=== PATIENT | male | born 1975 | race American Indian/Alaskan Native ===

== ENCOUNTER 2016-12-16 10:48 | Emergency (ER) | payer SELFPAY ==
[2016-12-16 11:58] VITALS: BP 121/83
--- NOTE | 2016-12-16 14:03 | Emergency Department Report ---
HPI - General Chief Complaint: Skin Rash Time Seen by Provider: 12/16/16 14:02 - HPI HPI: Patient is a 41-year-old male with no past medical history who presents to ED complaining of aching redness rash all over his body that started . Patient states since has been having this rash all over his body. Patient states he developed whelps and redness all over. Patient states some parts are dry just really relate itchy. Patient states his of allergies to penicillin and has not had penicillin recently. Patient states he had some fish recently and has not had any fish in a long time otherwise no other exposure. Patient states he currently stays at an extended stay. Patient denies fever assess chills/nausea/vomiting/shortness of breath. ED Past Medical Hx - Medications Home Medications: Home Medications Medication Instructions Recorded Confirmed Last Taken Type Famotidine [Pepcid] 20 mg PO BID #10 tablet 12/16/16 Unknown Rx Prednisone [predniSONE 10 mg 10 mg PO .TAPER #1 tab.ds.pk 12/16/16 Unknown Rx (6-Day Pack, 21 Tabs)] hydrOXYzine PAMOATE [Vistaril] 50 mg PO QHS #20 capsule 12/16/16 Unknown Rx ED Review of Systems ROS: Stated complaint: SKIN IRRITATION Other details as noted in HPI Constitutional: denies: chills, fever Eyes: denies: eye pain, eye discharge, vision change ENT: denies: ear pain, throat pain Respiratory: denies: cough, shortness of breath, wheezing Cardiovascular: denies: chest pain, palpitations Endocrine: no symptoms reported Gastrointestinal: denies: abdominal pain, nausea, diarrhea Genitourinary: denies: urgency, dysuria Musculoskeletal: denies: back pain, joint swelling, arthralgia Skin: rash, pruritus. denies: lesions Neurological: denies: headache, weakness, paresthesias Psychiatric: denies: anxiety, depression Hematological/Lymphatic: denies: easy bleeding, easy bruising Physical Exam - Physical Exam Vital Signs: Vital Signs 12/16/16 11:52 Temperature 98.3 F Pulse Rate 98 H Respiratory 18 Rate Blood Pressure 121/83 O2 Sat by Pulse 100 Oximetry Physical Exam: GENERAL: Alert and oriented x3, no apparent distress, Normal gait, atraumatic. HEAD: Head is normocephalic and a-traumatic. EYES: Extra ocular muscles are intact. Pupils are equal, round, and reactive to light and accommodation. EARS: symetrical, atraumatic, non tender, ear canal clear and moderate cerumen, tympanic membrance non inflamed. gross auditory nml bilaterally. NOSE: Nose symetrical, Nontender,Nares appeared normal. MOUTH:Mouth is well hydrated and without lesions. Tonsils nonerythematous or swollen, Uvula midline, Tongue not elevated. Mucous membranes are moist. Posterior pharynx clear, no exudate or lesions. Patent airways. NECK: Supple. Non edematous, No carotid bruits. No lymphadenopathy or thyromegaly. LUNGS: Symetrical with respiration, No wheezing, no rales or crackles, CTAB. HEART: S1, S2 present, regular rate and rhythm without murmur, no rubs, no gallops. ABDOMEN: No organomegaly was noted,Positive bowel sounds, soft, and non- distended. . Nontender to palpation on all Quadrants, NO CVA tenderness. EXTREMITIES/MUSCULOSKELETAL: No cyanosis, clubbing, rash, lesions or edema. Full ROM bilaterally. UE/LE Pulses 2+ bilaterally. LE and UE 5+ strength bilaterally NEUROLOGIC: No focal Deficit, Cranial nerves II through XII are grossly intact. SKIN: Warm and dry, red scaly maculopapular erythematous rash all over body on bilateral legs bilateral arms and trunk and upper back. No tl garner. ED Course Vital Signs 12/16/16 11:52 Temperature 98.3 F Pulse Rate 98 H Respiratory 18 Rate Blood Pressure 121/83 O2 Sat by Pulse 100 Oximetry ED Medical Decision Making - Medical Decision Making 41-year-old male presents with allergic dermatitis. ED course: Patient received 125 mg of Solu-Medrol IM and Claritin 10 mg. Discussed patient to discard any sheets and wash all linens and clothes prior to. Pt reports feeling better prior to d/c after the pred inj. Discussed with patient to follow up with primary care physician and take medication as prescribed. Critical care attestation.: If time is entered above; I have spent that time in minutes in the direct care of this critically ill patient, excluding procedure time. ED Disposition Clinical Impression: Allergic dermatitis Contact dermatitis Qualifiers: Contact dermatitis type: allergic Contact dermatitis trigger: unspecified trigger Qualified Code(s): L23.9 - Allergic contact dermatitis, unspecified cause Disposition: DISCHARGED TO HOME OR SELFCARE Is pt being admited?: No Does the pt Need Aspirin: No Condition: Stable Instructions: Contact Dermatitis (ED), Eczema (ED), Poison Kelly (ED) Prescriptions: hydrOXYzine PAMOATE [Vistaril] 50 mg PO QHS #20 capsule Famotidine [Pepcid] 20 mg PO BID #10 tablet Prednisone [predniSONE 10 mg (6-Day Pack, 21 Tabs)] 10 mg PO .TAPER #1 tab.ds.pk Referrals: PRIMARY CAREMD [Primary Care Provider] - 3-5 Days FREDY GARLAND MD [Staff Physician] - 3-5 Days ALTON RHODES MD [Staff Physician] - 3-5 Days BROOKE MALLOY MD [Referring] - 3-5 Days KATIE WALTER MD [Referring] - 3-5 Days RINA CAMPOS MD [Staff Physician] - 3-5 Days Forms: Work/School Release Form(ED) Time of Disposition: 14:27
[2016-12-16] MEDS ORDERED: CLARITIN PO ONE ×2 (14:12→14:14)
== END 2016-12-16 14:28 | disposition home or self-care (01) ==
LOC: ED 10:48
DX: L23.9 Allergic contact dermatitis, unspecified cause (principal)
CPT/HCPCS: 96372; 99282; J2930

== ENCOUNTER → 2020-03-31 17:15 | Emergency (ER) | payer SELFPAY | END | disposition left against medical advice (07) | LOC: ED 17:15 | DX: Z00.00 Encounter for general adult medical examination without abnormal findings (principal); Z53.21 Procedure and treatment not carried out due to patient leaving prior to being seen by health care provider ==